=== PATIENT | female | born 1995 | race Caucasian/White ===

== ENCOUNTER 2021-10-04 07:06 | Inpatient (IN) | payer OTHER ==
[~2021-10-04 07:06] MED LIST: Bupivacaine 0.25% 10 ML SDV ONE
[2021-10-04] MEDS ORDERED: Sodium Chloride 0.9% 10 ML Syringe FLUSH PRN (07:31)
[2021-10-04] MEDS ORDERED: Acetaminophen 325 MG Tab PO PRN (07:31)
[2021-10-04] MEDS ORDERED: Nalbuphine 10 MG/1 ML Vial IVPUSH PRN (07:31)
[2021-10-04] MEDS ORDERED: Ondansetron 4 MG/2 ML SDV IVPUSH PRN (07:31)
[2021-10-04] MEDS ORDERED: Oxytocin/Lactated Ringers 10 UNIT/1,000 ML BAG IV SCH ×2 (07:45)
[2021-10-04] MEDS: Lactated Ringers 1,000 ML IV SCH ×3 (07:48→10:37)
[2021-10-04] MEDS ORDERED: Bupivacaine/fentaNYL/NS 100 ML Bag EPIDUR PRN (08:07)
[2021-10-04] MEDS ORDERED: fentaNYL 100 MCG/2 ML SDV EPIDUR PRN (08:07)
[2021-10-04] MEDS ORDERED: ePHEDrine 50 MG/ML SDV IVPUSH PRN (08:07)
[2021-10-04] MEDS ORDERED: diphenhydrAMINE 50 MG/ML SDV IVPUSH PRN (08:07)
[2021-10-04] MEDS ORDERED: Sodium Chloride 0.9% 10 ML Syringe FLUSH SCH (09:00)
[2021-10-04] MEDS ORDERED: Benzocaine/Menthol 20%-0.5% Spray 78 GM Cannister TOP PRN (16:48)
[2021-10-04] MEDS: Witch Hazel Medicated Pads 40/Jar TOP PRN (20:08)
[2021-10-04] MEDS: Ibuprofen 600 MG Tab PO PRN (20:09)
[2021-10-04] MEDS: Docusate Sodium 100 MG Cap PO PRN (20:09)
[2021-10-05] MEDS: Ibuprofen 600 MG Tab PO PRN ×3 (04:44→21:03)
[2021-10-05] MEDS: Acetaminophen 325 MG Tab PO PRN ×2 (10:02→19:23)
[2021-10-05] MEDS: Docusate Sodium 100 MG Cap PO PRN (21:05)
[2021-10-06] MEDS: Witch Hazel Medicated Pads 40/Jar TOP PRN (01:14)
[2021-10-06] MEDS: Ibuprofen 600 MG Tab PO PRN (05:12)
[2021-10-06] MEDS: Acetaminophen 325 MG Tab PO PRN (09:31)
[2021-10-06] MEDS: Docusate Sodium 100 MG Cap PO PRN (09:31)
== END 2021-10-06 11:45 | disposition home or self-care (01) | DRG 807 ==
LOC: JD.OB 07:06 → OBSVTOIN 15:10 → JD.OB 15:11
PROVIDERS: ADMIT Obstetrics & Gynecology; ATTEND Obstetrics & Gynecology
PROC: 10E0XZZ Delivery of Products of Conception, External Approach (ICD-10-PCS; principal; 2021-10-04)
PROC: 10907ZC Drainage of Amniotic Fluid, Therapeutic from Products of Conception, Via Natural or Artificial Opening (ICD-10-PCS; 2021-10-04)
PROC: 3E0R3BZ Introduction of Anesthetic Agent into Spinal Canal, Percutaneous Approach (ICD-10-PCS; 2021-10-04)
PROC: 00HU33Z Insertion of Infusion Device into Spinal Canal, Percutaneous Approach (ICD-10-PCS; 2021-10-04)
DX: O48.0 Post-term pregnancy (principal); Z37.0 Single live birth; Z3A.40 40 weeks gestation of pregnancy; O99.344 Other mental disorders complicating childbirth; F41.9 Anxiety disorder, unspecified; O69.81X0 Labor and delivery complicated by cord around neck, without compression, not applicable or unspecified; O99.214 Obesity complicating childbirth; E66.9 Obesity, unspecified
CPT/HCPCS: 36415; 51702; 59025; 59409; 80053; 85027; 86592; 86850; 86900; 86901; A9270-GY; J2590; J3010; J3490; J7120

== ENCOUNTER 2024-12-03 05:15 | Inpatient (IN) | payer OTHER ==
[2024-12-03] MEDS ORDERED: Ondansetron 4 MG/2 ML SDV IVPUSH PRN (05:53)
[2024-12-03] MEDS ORDERED: Nalbuphine 10 MG/1 ML Vial IVPUSH PRN (05:53)
[2024-12-03] MEDS ORDERED: Calcium Carbonate 500 MG Tab.Chew PO PRN (05:53)
[2024-12-03] MEDS ORDERED: Lidocaine 1% 50 ML MDV INJECT PRN (05:53)
[2024-12-03] MEDS ORDERED: Sodium Chloride 0.9% 10 ML Syringe FLUSH PRN (05:53)
[2024-12-03] MEDS ORDERED: Oxytocin/0.9 % Sodium Chloride 30 UNIT/500 ML BAG IV SCH (06:00)
[2024-12-03] MEDS: Lactated Ringers 1,000 ML IV SCH (06:11)
[2024-12-03 06:15] LABS: BASOPHILS PERCENT AUTO 0.3 % (0.0-1.0); EOSINOPHILS ABSOLUTE AUTO 0.1 K/mm3 (0.0-0.4); EOSINOPHILS PERCENT AUTO 0.6 % (0.0-6.0); HEMATOCRIT 34.7 % (37.0-47.0); HEMOGLOBIN 11.7 gm/dl (12.0-16.0); IMMATURE GRAN ABSOLUTE AUTO 0.08 K/mm3 (0.00-0.05); IMMATURE GRAN PERCENT AUTO 0.6 % (0.0-0.4); LYMPHOCYTES ABSOLUTE AUTO 1.7 K/mm3 (1.0-4.8); LYMPHOCYTES PERCENT AUTO 11.8 % (24.0-44.0); MEAN CORPUSCULAR HEMOGLOBIN 30.6 pg (28.0-32.0); MEAN CORPUSCULAR HGB CONC 33.7 g/dl (32.0-36.0); MEAN CORPUSCULAR VOLUME 90.8 fl (83.0-99.0); MEAN PLATELET VOLUME 10.5 fl (9.4-12.3); MONOCYTES PERCENT AUTO 7.4 % (0.0-8.0); NEUTROPHILS ABSOLUTE AUTO 11.2 K/mm3 (1.8-7.7); NEUTROPHILS PERCENT AUTO 79.3 % (41.0-71.0); PLATELET COUNT,PLT 202 K/mm3 (150-400); RED BLOOD CELL COUNT 3.82 M/mm3 (4.10-5.30); WHITE BLOOD CELL COUNT,WBC 14.11 K/mm3 (3.9-11.3)
[2024-12-03] MEDS ORDERED: Bupivacaine 0.25% 10 ML SDV ONE (07:00)
[2024-12-03] MEDS ORDERED: diphenhydrAMINE 50 MG/ML SDV IVPUSH PRN (07:33)
[2024-12-03] MEDS ORDERED: ePHEDrine 50 MG/ML SDV IVPUSH PRN (07:33)
[2024-12-03] MEDS: fentaNYL 100 MCG/2 ML SDV EPIDUR PRN (07:43)
[2024-12-03] MEDS: Bupivacaine/fentaNYL/NS 100 ML Bag EPIDUR PRN (07:43)
[2024-12-03] MEDS: Sodium Chloride 0.9% 10 ML Syringe FLUSH SCH (09:29)
[2024-12-03] MEDS: Oxytocin/0.9 % Sodium Chloride 30 UNIT/500 ML BAG IV SCH (12:07)
[2024-12-03] MEDS ORDERED: Acetaminophen 325 MG Tab PO PRN (13:56)
[2024-12-03] MEDS: Witch Hazel Medicated Pads 40/Jar TOP PRN (14:10)
[2024-12-03] MEDS: Benzocaine/Menthol 20%-0.5% Spray 78 GM Cannister TOP PRN (14:10)
[2024-12-03] MEDS: Ibuprofen 600 MG Tab PO SCH (14:49)
[2024-12-04] MEDS: Docusate Sodium 100 MG Cap PO PRN (09:23)
== END 2024-12-04 14:47 | disposition home or self-care (01) | DRG 807 ==
LOC: JD.OBCHECK 05:15 → JD.OB 05:21 → JD.OBCHECK 05:53 → JD.OB 05:53 → OBSVTOIN 12:07
PROVIDERS: ADMIT Obstetrics & Gynecology; ATTEND Obstetrics & Gynecology
PROC: 10E0XZZ Delivery of Products of Conception, External Approach (ICD-10-PCS; principal; 2024-12-03)
PROC: 10907ZC Drainage of Amniotic Fluid, Therapeutic from Products of Conception, Via Natural or Artificial Opening (ICD-10-PCS; 2024-12-03)
PROC: 4A1HXCZ Monitoring of Products of Conception, Cardiac Rate, External Approach (ICD-10-PCS; 2024-12-03)
PROC: 3E0R3BZ Introduction of Anesthetic Agent into Spinal Canal, Percutaneous Approach (ICD-10-PCS; 2024-12-03)
PROC: 00HU33Z Insertion of Infusion Device into Spinal Canal, Percutaneous Approach (ICD-10-PCS; 2024-12-03)
DX: O80 Encounter for full-term uncomplicated delivery (principal); Z37.0 Single live birth; Z3A.39 39 weeks gestation of pregnancy
CPT/HCPCS: 36415; 51702; 59025; 59409; 85025; 86592; 86850; 86900; 86901; A9270-GY; J0665; J3010; J3490; J7120; J7999